=== PATIENT | male | born 1935 | race Caucasian/White ===

== ENCOUNTER → 2020-08-27 | Outpatient (CLI) | payer MEDICARE ==
[~2020-08-27] MED LIST: ASPIRIN CHEWABL81 MG PO; AZULFIDINE 500500 MG PO; CARBIDOPA-LEVO1 EAC1 PO; CARBIDOPA-LEVO1 EAC6 PO; ELIQUIS5 MG PO; IMDUR ER TAB 3030 MG PO; KLONOPIN TAB 00.5 MG PO; LIPITOR TAB 1010 MG PO; LOPRESSOR 25 MG25 MG PO; METOPROLOL TART25 MG PO; NITROSTAT 0.40.4 MG SL; PRAVACHOL20 MG PO; PROSCAR5 MG PO; SYNTHROID 50 M50 MCG PO
== END ==
LOC: KOH-I 08:00
DX: Z13.6 Encounter for screening for cardiovascular disorders (principal); I73.89 Other specified peripheral vascular diseases; R40.4 Transient alteration of awareness
CPT/HCPCS: 76706-PO; 93925

== ENCOUNTER 2021-09-05 15:45 | Inpatient (IN) | payer MEDICARE ==
[~2021-09-05] VITALS: Ht 182.9 cm; Wt 88.5 kg
[2021-09-05 16:19] LABS: HEMOGLOBIN 13.5 gm/dl (14.0-17.5); RED BLOOD COUNT 4.6 M/UL (4.20-5.50); WHITE BLOOD COUNT 6.9 K/UL (4.5-11.0)
[2021-09-06 06:51] LABS: HEMOGLOBIN 13.1 gm/dl (14.0-17.5); RED BLOOD COUNT 4.56 M/UL (4.20-5.50); WHITE BLOOD COUNT 5.7 K/UL (4.5-11.0)
[2021-09-06 07:09] LABS: BUN/CREATININE RATIO 19 (0-10)
[2021-09-06] MEDS ORDERED: TRENTAL 400 MG400 MG PO (13:19)
[2021-09-06] MEDS ORDERED: FLOMAX 0.4 MG0.4 MG PO (13:20)
[2021-09-06] MEDS ORDERED: BUSPIRONE HCL10 MG PO (13:20)
[2021-09-06] MEDS ORDERED: ATORVASTATIN CA40 MG PO (13:20)
[2021-09-06] MEDS ORDERED: CLOPIDOGREL75 MG PO (13:21)
[2021-09-06] MEDS ORDERED: CARBIDOPA-LEVO1 EA14 PO (13:21)
[2021-09-06] MEDS ORDERED: ISOSORBIDE MONO30 MG PO (13:22)
[2021-09-07 12:18] LABS: HEMOGLOBIN 13.6 gm/dl (14.0-17.5); RED BLOOD COUNT 4.68 M/UL (4.20-5.50)
[2021-09-07 12:32] LABS: WHITE BLOOD COUNT 11.1 K/UL (4.5-11.0)
--- NOTE | 2021-09-07 13:09 | NUR ---
NURSE NOTICED THAT THE PT IS CAPABLE OF TURNING OFF THE BED ALARM. INSTRUMENT CALIBRATOR IS AWARE.
--- NOTE | 2021-09-07 14:50 | NUR ---
1430- In room to talk with pt at request of Dr Juarez, to prevent pt from leaving AMA. Pt calm, alert and oriented at present. Accompanied by Primary Rn and Manufacturing Engineer Assembly. Noted pt was not wearing telemetry and pulled out IV access. Discussed with patient need to stay and get treatment so he would feel better. Attempted to convince pt to wear heart monitor for his safety, pt refused stating " I dont need it" . Assisted pt to set up his lunch, he had stated he did not want it before, as he thought it was only pudding. pt states he will stay, "the doctor just needs to get on with it." Notified Dr Juarez of pt pulling out IV and continued refusal to wear telemetry as he was outside pt room upon my exit. No further orders noted.
--- NOTE | 2021-09-07 19:03 | NUR ---
CALLED LEVELER FOR THE NEED OF A SITTER FOR PATIENT. NO SITTERS AVAILABLE AT THIS TIME. LEVELER STATED TO PULL ONE OF THE ZOO VETERINARIAN'S ON THE FLOOR TO SIT WITH PATIENT.
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
--- NOTE | 2021-09-08 05:00 | NUR ---
BILATERAL SOFT WRIST RESTRAINTS REMOVED AT 0500. PT RESTING AT THIS TIME. PULSES WITHIN NORMAL LIMITS. SKIN IS INTACT AND WITHIN NORMAL LIMITS. NO SIGNS OF SKIN BREAKDOWN.
[2021-09-08 10:24] LABS: HEMOGLOBIN 14.8 gm/dl (14.0-17.5); WHITE BLOOD COUNT 10.4 K/UL (4.5-11.0)
[2021-09-08 10:26] LABS: RED BLOOD COUNT 5.36 M/UL (4.20-5.50)
[2021-09-09 09:15] LABS: HEMOGLOBIN 13.8 gm/dl (14.0-17.5); WHITE BLOOD COUNT 9.8 K/UL (4.5-11.0)
[2021-09-09 09:16] LABS: RED BLOOD COUNT 4.8 M/UL (4.20-5.50)
[2021-09-09 09:52] LABS: BUN/CREATININE RATIO 28 (0-10)
[2021-09-10 06:43] LABS: HEMOGLOBIN 13.2 gm/dl (14.0-17.5); RED BLOOD COUNT 4.63 M/UL (4.20-5.50); WHITE BLOOD COUNT 9.3 K/UL (4.5-11.0)
[2021-09-10 07:21] LABS: BUN/CREATININE RATIO 31 (0-10)
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
[2021-09-11] MEDS ORDERED: ATIVAN1 MG PO ×3 (16:15→16:50)
[2021-09-11] MEDS ORDERED: PROTONIX 40 MG40 M1 PO (16:21)
[2021-09-11] MEDS ORDERED: COMBIVENT RESPIM4 GM INH (16:21)
[2021-09-11] MEDS ORDERED: DECADRON6 MG PO (16:46)
[2021-09-11] MEDS ORDERED: LOPRESSOR 25 MG25 MG PO (16:46)
[2021-09-11] MEDS ORDERED: AMLODIPINE BESYL5 MG PO (16:46)
[2021-09-11] MEDS ORDERED: ELIQUIS 2.5 MG2.5 MG PO (16:46)
[2021-09-11] MEDS ORDERED: AMOX TR-K CLV1 EAC4 PO (16:56)
[2021-09-11] MEDS ORDERED: FLONASE 0.05% N16 GM (16:56)
== END 2021-09-11 17:44 | disposition home health service (06) | DRG 177 ==
LOC: ER1 15:45 → MED SURG 4 17:22 → CDU 17:22 → MED SURG 4 19:57
PROVIDERS: Internal Medicine; Nurse Practitioner; ADMIT Internal Medicine
PROC: 8E0ZXY6 Isolation (ICD-10-PCS; principal; 2021-09-05)
PROC: 3E0333Z Introduction of Anti-inflammatory into Peripheral Vein, Percutaneous Approach (ICD-10-PCS; 2021-09-05)
PROC: XW033E5 Introduction of Remdesivir Anti-infective into Peripheral Vein, Percutaneous Approach, New Technology Group 5 (ICD-10-PCS; 2021-09-05)
DX: U07.1 COVID-19 (principal); J12.82 Pneumonia due to coronavirus disease 2019; J96.01 Acute respiratory failure with hypoxia; J15.9 Unspecified bacterial pneumonia; J44.0 Chronic obstructive pulmonary disease with (acute) lower respiratory infection; E87.2 Acidosis; I73.9 Peripheral vascular disease, unspecified; Z96.661 Presence of right artificial ankle joint; I25.10 Atherosclerotic heart disease of native coronary artery without angina pectoris; N40.0 Benign prostatic hyperplasia without lower urinary tract symptoms; F03.90 Unspecified dementia, unspecified severity, without behavioral disturbance, psychotic disturbance, mood disturbance, and anxiety; H91.10 Presbycusis, unspecified ear; G20 Parkinson's disease; F02.80 Dementia in other diseases classified elsewhere, unspecified severity, without behavioral disturbance, psychotic disturbance, mood disturbance, and anxiety; J32.0 Chronic maxillary sinusitis; J32.2 Chronic ethmoidal sinusitis; E78.5 Hyperlipidemia, unspecified; H91.90 Unspecified hearing loss, unspecified ear; K21.9 Gastro-esophageal reflux disease without esophagitis; G62.9 Polyneuropathy, unspecified; R45.1 Restlessness and agitation; F29 Unspecified psychosis not due to a substance or known physiological condition; E03.9 Hypothyroidism, unspecified; Z66 Do not resuscitate; Z87.11 Personal history of peptic ulcer disease; Z98.890 Other specified postprocedural states; Z95.818 Presence of other cardiac implants and grafts; Z87.891 Personal history of nicotine dependence; Z98.41 Cataract extraction status, right eye; Z98.42 Cataract extraction status, left eye; Z82.49 Family history of ischemic heart disease and other diseases of the circulatory system
CPT/HCPCS: 0240U; 36415; 36600; 70450; 70551; 71045; 80053; 81001; 82550; 82553; 82803; 82962; 83605; 83735; 83880; 84484; 85025; 85027; 85652; 86140; 87040; 93005; 94640; 94664; 94760; 96374; 96375; 97116; 97116-GP-CQ; 97162; 97166; 97530; 99285; J0248; J0456; J0696; J1100; J1650; J2060; J2405; J7030